=== PATIENT | male | born 1970 | race Hispanic/Latino ===

== ENCOUNTER 2019-12-02 11:56 | Observation (INO) | payer BC ==
--- NOTE | 2019-12-02 12:13 | Event Note ---
ED Screening Note Date of service: 12/02/19 Time: 12:09 ED Screening Note: This initial assessment/diagnostic orders/clinical plan/treatment(s) is/are subject to change based on patients health status, clinical progression and re- assessment by fellow clinical providers in the ED. Further treatment and workup at subsequent clinical providers discretion. Patient/guardian urged not to elope from the ED as their condition may be serious if not clinically assessed and managed. Initial orders include: 49o M states that he has CP, CHRISTENSEN, tingling in both arms and feet x 3-4 hrs. Pt states he has had an episode similar 2yrs ago. Pt states he to supposed to be Lisiniprol 40 mg and HCTZ -25mg. Hx of HTN and Asthma.
--- NOTE | 2019-12-02 12:53 | XRay Report ---
CHEST 2 VIEWS INDICATION / CLINICAL INFORMATION: Chest pain. COMPARISON: None available. FINDINGS: SUPPORT DEVICES: None. HEART / MEDIASTINUM: No significant abnormality. LUNGS / PLEURA: No significant pulmonary or pleural abnormality. No pneumothorax. ADDITIONAL FINDINGS: No significant additional findings. IMPRESSION: 1. No acute findings. Signer Name: Kendall Ruiz MD Signed: 12/02/2019 12:49 PM Workstation Name: [id number]
[2019-12-02 13:46] LABS: Hematocrit 50.1 % (35.5-45.6); Hemoglobin 16.8 gm/dl (11.8-15.2); Mean Corpuscular HGB Conc 34 % (32-34); Mean Corpuscular Volume 96 fl (84-94); Platelet Count 280 K/mm3 (140-440); Red Cell Distribution Width 13.1 % (13.2-15.2)
[2019-12-02] MEDS ORDERED: LEVALBUTEROL 0.63 MG/3 ML NEBU IH ONE (13:56)
[2019-12-02] MEDS ORDERED: cloNIDine 0.2 MG TAB PO ONE (13:59)
--- NOTE | 2019-12-02 14:02 | Emergency Department Report ---
HPI - General Chief Complaint: Chest Pain - HPI HPI: Room 3 The patient is a 49-year-old male present with a chief complaint of chest pain. The patient states that this morning at 11: 3 0 while walking he developed tightness in the middle of his chest and tightness and paresthesia of the left upper extremity. Patient states the tightness is been constant and associated with shortness of breath and nausea without vomiting or diaphoresis. The patient states she has been of his blood pressure medication for the past 3-6 months. Patient states his last stress test occurred 5 to 6 years ago but he is never had a cardiac catheterization ED Past Medical Hx - Past Medical History Previous Medical History?: Yes Hx Hypertension: Yes Hx Asthma: Yes - Surgical History Past Surgical History?: No Additional Surgical History: Tonsillectomy - Family History Family history: no significant - Social History Smoking Status: Heavy Tobacco Smoker Substance Use Type: None (Denies illicit drug use) ED Review of Systems ROS: Stated complaint: LEFT SIDED WEAKNESS Other details as noted in HPI Constitutional: denies: diaphoresis Eyes: denies: eye pain ENT: denies: throat pain Respiratory: shortness of breath Cardiovascular: chest pain Endocrine: no symptoms reported Gastrointestinal: nausea. denies: vomiting Genitourinary: denies: dysuria Musculoskeletal: denies: back pain Neurological: denies: headache Physical Exam - Physical Exam Vital Signs: Vital Signs 12/02/19 12:02 Temperature 98.3 F Pulse Rate 133 H Respiratory 20 Rate Blood Pressure 180/120 [Right] O2 Sat by Pulse 94 Oximetry Physical Exam: GENERAL: The patient is well-developed well-nourished male sitting on stretcher not appearing to be in acute distress. [] HEENT: Normocephalic. Atraumatic. Extraocular motions are intact. Patient has moist mucous membranes. NECK: Supple. Trachea midline CHEST/LUNGS: Clear to auscultation. There is no respiratory distress noted. HEART/CARDIOVASCULAR: Regular. There is no tachycardia. There is no gallop rub or murmur. ABDOMEN: Abdomen is soft, nontender. Patient has normal bowel sounds. There is no abdominal distention. SKIN: There is no rash. There is no edema. There is no diaphoresis. NEURO: The patient is awake, alert, and oriented. The patient is cooperative. The patient has normal speech MUSCULOSKELETAL: There is no evidence of acute injury. ED Course Vital Signs 12/02/19 12:02 Temperature 98.3 F Pulse Rate 133 H Respiratory 20 Rate Blood Pressure 180/120 [Right] O2 Sat by Pulse 94 Oximetry ED Medical Decision Making - Lab Data Result diagrams: 12/02/19 12:44 12/02/19 12:44 Laboratory Tests 12/02/19 12/02/19 12/02/19 12:12 12:44 12:44 WBC 14.3 H RBC 5.20 H Hgb 16.8 H Hct 50.1 H MCV 96 H MCH 32 MCHC 34 RDW 13.1 L Plt Count 280 D-Dimer Sodium 135 L Potassium 3.9 Chloride 94.9 L Carbon Dioxide 22 Anion Gap 22 BUN 9 Creatinine 0.7 L Estimated GFR > 60 BUN/Creatinine Ratio 13 Glucose 90 POC Glucose 86 Calcium 9.7 Total Bilirubin 0.60 AST 17 ALT 16 Alkaline Phosphatase 89 Troponin T < 0.010 NT-Pro-B Natriuret Pep Total Protein 7.7 Albumin 4.4 Albumin/Globulin Ratio 1.3 12/02/19 12/02/19 14:07 14:07 WBC RBC Hgb Hct MCV MCH MCHC RDW Plt Count D-Dimer 155.17 Sodium Potassium Chloride Carbon Dioxide Anion Gap BUN Creatinine Estimated GFR BUN/Creatinine Ratio Glucose POC Glucose Calcium Total Bilirubin AST ALT Alkaline Phosphatase Troponin T NT-Pro-B Natriuret Pep 57.77 Total Protein Albumin Albumin/Globulin Ratio - EKG Data -: EKG Interpreted by Me EKG shows normal: sinus rhythm Rate: tachycardia (133) - EKG Data When compared to previous EKG there are: previous EKG unavailable Interpretation: other (No ischemic changes seen) - Radiology Data Radiology results: report reviewed (Chest x-ray), image reviewed (Chest x-ray) interpreted by me: Chest x-ray-no focal infiltrates, no pneumothorax Findings [facility] [address] [place] [address] XRay Report Signed Patient: GONZALES ARMENDARIZ MR#: [id number] : 1970 Acct:[id number] Age/Sex: 49 / M ADM Date: 12/02/19 Loc: ED Attending Dr: Ordering Physician: GLORY MISHRA PA-C Date of Service: 12/02/19 Procedure(s): XR chest routine 2V Accession Number(s): [id number] cc: GLORY MISHRA PA-C Fluoro Time In Minutes: CHEST 2 VIEWS INDICATION / CLINICAL INFORMATION: Chest pain. COMPARISON: None available. FINDINGS: SUPPORT DEVICES: None. HEART / MEDIASTINUM: No significant abnormality. LUNGS / PLEURA: No signif icant pulmonary or pleural abnormality. No pneumothorax. ADDITIONAL FINDINGS: No significant additional findings. IMPRESSION: 1. No acute findings. Signer Name: Kendall Ruiz MD Signed: 12/02/2019 12:49 PM Workstation Name: [id number] Transcribed By: EMILY Dictated By: Kendall Ruiz MD Electronically Authenticated By: Kendall Ruiz MD Signed Date/Time: 12/02/191248 DD/ 48 TD/TT: - Differential Diagnosis ACS, PE, pericarditis, GERD Critical care attestation.: If time is entered above; I have spent that time in minutes in the direct care of this critically ill patient, excluding procedure time. ED Disposition Clinical Impression: Chest pain Disposition: DC-09 OP ADMIT IP TO THIS HOSP Is pt being admited?: Yes Does the pt Need Aspirin: Yes Condition: Fair Instructions: Chest Pain (ED) Referrals: PRIMARY CARE, [Primary Care Provider] - 3-5 Days Time of Disposition: 14:57 (Hospitalist paged (Dr Galvez))
[2019-12-02 14:17] LABS: Alanine Aminotransferase 16 units/L (7-56); Albumin 4.4 g/dL (3.9-5); BUN/Creatinine Ratio 13; Blood Urea Nitrogen 9 mg/dL (9-20); Calcium 9.7 mg/dL (8.4-10.2); Hemolysis Index 15
[2019-12-02] MEDS ORDERED: ASPIRIN 325 MG TAB PO ONE (14:58)
[2019-12-02 15:10] LABS: Amphetamine Screen,Urine PRESUMPTIVE NEGATIVE; Benzodiazepines Screen,Urine PRESUMPTIVE NEGATIVE; Cannabinoid Screen,Urine PRESUMPTIVE NEGATIVE; Cocaine Screen,Urine PRESUMPTIVE NEGATIVE; Methadone Screen,Urine PRESUMPTIVE NEGATIVE; Opiate Screen,Urine PRESUMPTIVE NEGATIVE
--- NOTE | 2019-12-02 19:46 | History and Physical Report ---
History of Present Illness Date of examination: 12/02/19 Date of admission: 12/02/19 14:59 Chief complaint: Chest pain since 11:30 AM today History of present illness: 49-year-old male with history of hypertension not taking his medication and severe nicotine dependence-smoking about 1 to 2 packs a day comes in for left-sided chest pain since 11:30 AM. Chest pain is intermittent about 6 on a scale of 1-10. Dull to sharp. Chest pain radiating to the left arm. Chest tightness is constant. No diaphoresis or palpitations. Patient also not taking his blood pressure medications. Patient had a stress test about 5 to 6 years ago. Never had a cardiac cath. No fitter helper. Patient does not want any NicoDerm patch for his nicotine dependence. Nausea shortness of breath. No recent travel. No exacerbating or relieving factors. Past Medical History Previous Medical History?: Yes Hypertension: Yes Asthma: Yes Surgical History Past Surgical History?: No Additional Surgical History: Tonsillectomy Family History Family history: no significant Social History Smoking Status: Heavy Tobacco Smoker--1 to 2 packs a day. Substance Use Type: None (Denies illicit drug use) Review of Systems ROS: Constitutional: no fever, no chills, no weight loss Ears, eyes, nose, mouth and throat: no nasal congestion, no nasal discharge, no sinus pressure, no vision change, no red eye. Neck: No neck pain or rigidity. Cardiovascular:Chest pain since 11:30 AM. Severe chest tightness. Radiating to the left arm. No orthopnea, no palpitations, no leg swelling Respiratory: No shortness of breath, no cough, no congestion, no wheezing Gastrointestinal: no abdominal pain, no nausea, no vomiting Genitourinary : no dysuria, no hematuria Musculoskeletal: no joint swelling or muscle ache Integumentary: no rash, no pruritis Neurological: no parathesias, no numbness, no tingling Endocrine: no cold or heat intolerance, no polyuria or polydipsia Hematologic/Lymphatic: no easy bruising, no easy bleeding, no gland swelling Allergic/Immunologic: no urticaria, no angioedema. Medications and Allergies Allergies Allergy/AdvReac Type Severity Reaction Status Date / Time No Known Allergies Allergy Unverified 12/02/19 12:01 Exam - Constitutional Vitals: Temp Pulse Resp BP Pulse Ox 98.3 F 91 H 15 140/90 94 12/02/19 12:02 12/02/19 17:00 12/02/19 17:00 12/02/19 17:00 12/02/19 17:00 General appearance: Present: no acute distress, well-nourished - EENT Eyes: Present: PERRL ENT: hearing intact, clear oral mucosa - Neck Neck: Present: supple, normal ROM - Respiratory Respiratory effort: normal Respiratory: bilateral: CTA - Cardiovascular Heart rate: 123 Rhythm: regular Heart Sounds: Present: S1 & S2. Absent: rub, click - Extremities Extremities: no ischemia, pulses intact, pulses symmetrical, No edema Peripheral Pulses: within normal limits - Abdominal General gastrointestinal: Present: soft, non-tender, non-distended, normal bowel sounds Male genitourinary: Present: normal - Rectal Rectal Exam: deferred - Integumentary Integumentary: Present: clear, warm, dry - Musculoskeletal Musculoskeletal: gait normal, strength equal bilaterally - Psychiatric Psychiatric: appropriate mood/affect, intact judgment & insight - Neurologic Neurologic: CNII-XII intact, moves all extremities - Allied Health Allied health notes reviewed: nursing, case management Results - Labs CBC & Chem 7: 12/02/19 12:44 12/02/19 12:44 Labs: Laboratory Last Values WBC 14.3 K/mm3 (4.5-11.0) H 12/02/19 12:44 RBC 5.20 M/mm3 (3.65-5.03) H 12/02/19 12:44 Hgb 16.8 gm/dl (11.8-15.2) H 12/02/19 12:44 Hct 50.1 % (35.5-45.6) H 12/02/19 12:44 MCV 96 fl (84-94) H 12/02/19 12:44 MCH 32 pg (28-32) 12/02/19 12:44 MCHC 34 % (32-34) 12/02/19 12:44 RDW 13.1 % (13.2-15.2) L 12/02/19 12:44 Plt Count 280 K/mm3 (140-440) 12/02/19 12:44 D-Dimer 155.17 ng/mlDDU (0-234) 12/02/19 14:07 Sodium 135 mmol/L (137-145) L 12/02/19 12:44 Potassium 3.9 mmol/L (3.6-5.0) 12/02/19 12:44 Chloride 94.9 mmol/L (98-107) L 12/02/19 12:44 Carbon Dioxide 22 mmol/L (22-30) 12/02/19 12:44 Anion Gap 22 mmol/L 12/02/19 12:44 BUN 9 mg/dL (9-20) 12/02/19 12:44 Creatinine 0.7 mg/dL (0.8-1.5) L 12/02/19 12:44 Estimated GFR > 60 ml/min 12/02/19 12:44 BUN/Creatinine Ratio 13 % 12/02/19 12:44 Glucose 90 mg/dL (75-100) 12/02/19 12:44 POC Glucose 86 (70-105) 12/02/19 12:12 Calcium 9.7 mg/dL (8.4-10.2) 12/02/19 12:44 Total Bilirubin 0.60 mg/dL (0.1-1.2) 12/02/19 12:44 AST 17 units/L (5-40) 12/02/19 12:44 ALT 16 units/L (7-56) 12/02/19 12:44 Alkaline Phosphatase 89 units/L (35-129) 12/02/19 12:44 Troponin T < 0.010 ng/mL (0.00-0.029) 12/02/19 12:44 NT-Pro-B Natriuret Pep 57.77 pg/mL (0-450) 12/02/19 14:07 Total Protein 7.7 g/dL (6.3-8.2) 12/02/19 12:44 Albumin 4.4 g/dL (3.9-5) 12/02/19 12:44 Albumin/Globulin Ratio 1.3 % 12/02/19 12:44 Urine Opiates Screen Presumptive negative 12/02/19 Unknown Urine Methadone Screen Presumptive negative 12/02/19 Unknown Ur Barbiturates Screen Presumptive negative 12/02/19 Unknown Ur Phencyclidine Scrn Presumptive negative 12/02/19 Unknown Ur Amphetamines Screen Presumptive negative 12/02/19 Unknown U Benzodiazepines Scrn Presumptive negative 12/02/19 Unknown Urine Cocaine Screen Presumptive negative 12/02/19 Unknown U Marijuana (THC) Screen Presumptive negative 12/02/19 Unknown Drugs of Abuse Note Disclamer 12/02/19 Unknown Short CBC 12/02/19 Range/Units 12:44 WBC 14.3 H (4.5-11.0) K/mm3 Hgb 16.8 H (11.8-15.2) gm/dl Hct 50.1 H (35.5-45.6) % Plt Count 280 (140-440) K/mm3 BMP 12/02/19 12:44 Sodium 135 L Potassium 3.9 Chloride 94.9 L Carbon Dioxide 22 BUN 9 Creatinine 0.7 L Glucose 90 Calcium 9.7 Cardiac Enzymes 12/02/19 Range/Units 12:44 Troponin T < 0.010 (0.00-0.029) ng/mL Liver Function 12/02/19 Range/Units 12:44 Total Bilirubin 0.60 (0.1-1.2) mg/dL AST 17 (5-40) units/L ALT 16 (7-56) units/L Alkaline Phosphatase 89 (35-129) units/L Albumin 4.4 (3.9-5) g/dL - Imaging and Cardiology EKG: report reviewed (Sinus tachycardia, heart rate of 123/min, probable left atrial enlargement) Chest x-ray: report reviewed (No acute findings) Assessment and Plan Advance Directives: Yes (Full code) VTE prophylaxis?: Chemical Plan of care discussed with patient/family: Yes - Patient Problems (1) Chest pain Current Visit: Yes Status: Acute Qualifiers: Chest pain type: unspecified Qualified Code(s): R07.9 - Chest pain, unspecified Plan to address problem: Chest pain-rule out SD Differential diagnosis of costochondritis and GERD Serial troponins Exercise stress test in the morning (2) Hypertension Current Visit: Yes Status: Chronic Qualifiers: Hypertension type: essential hypertension Qualified Code(s): I10 - Essential (primary) hypertension Plan to address problem: Patient initiated on losartan 50 mg once a day (3) Nicotine dependence Current Visit: Yes Status: Chronic Qualifiers: Nicotine product type: cigarettes Plan to address problem: Smokes about 1 pack to 2 packs a day Patient was counseled about stopping smoking Reluctant to stop smoking Does not want the NicoDerm patch (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
[2019-12-02] MEDS ORDERED: oxyCODONE /ACETAMINOPHEN 5-325MG TAB PO PRN (19:54)
[2019-12-02] MEDS ORDERED: ONDANSETRON 4 MG/2 ML INJ IV PRN (19:54)
[2019-12-02] MEDS ORDERED: METOCLOPRAMIDE 10 MG/2 ML INJ IV PRN (19:54)
[2019-12-02] MEDS ORDERED: HYDROmorphone 1 MG/1 ML INJ IV PRN (19:54)
[2019-12-02] MEDS ORDERED: ACETAMINOPHEN 325 MG TAB PO PRN (19:54)
[2019-12-02] MEDS ORDERED: SODIUM CHLORIDE 0.9% 1000 ML 1,000 ML IV SCH (20:00)
[2019-12-02] MEDS ORDERED: ALBUTEROL 2.5 MG/3 ML NEBU IH PRN (20:01)
[2019-12-02] MEDS: ASPIRIN EC 81 MG TAB PO SCH (20:45)
[2019-12-02] MEDS: LOSARTAN 50 MG TAB PO SCH (20:45)
[2019-12-02] MEDS: HEPARIN 5,000 UNIT/1 ML VIAL SUB-Q SCH (21:41)
[2019-12-02] MEDS: FAMOTIDINE 20 MG/2 ML INJ IV SCH (21:42)
[2019-12-03 03:43] LABS: Basophils # (Auto) 0.1 K/mm3 (0.0-0.1); Basophils % (Auto) 0.7 % (0.0-1.8); Eosinophils # (Auto) 0.3 K/mm3 (0.0-0.4); Eosinophils % (Auto) 2.7 % (0.0-4.3); Hematocrit 46.6 % (35.5-45.6); Hemoglobin 15.7 gm/dl (11.8-15.2); Lymphocytes # (Auto) 3.3 K/mm3 (1.2-5.4); Lymphocytes % (Auto) 27.5 % (13.4-35.0); Mean Corpuscular HGB Conc 34 % (32-34); Mean Corpuscular Volume 96 fl (84-94); Monocytes # (Auto) 1.1 K/mm3 (0.0-0.8); Monocytes % (Auto) 9.1 % (0.0-7.3); Platelet Count 234 K/mm3 (140-440); Red Blood Count 4.84 M/mm3 (3.65-5.03); Red Cell Distribution Width 13.1 % (13.2-15.2)
[2019-12-03 04:05] LABS: Alanine Aminotransferase 12 units/L (7-56); Albumin 3.9 g/dL (3.9-5); BUN/Creatinine Ratio 14; Blood Urea Nitrogen 10 mg/dL (9-20); Calcium 9.3 mg/dL (8.4-10.2); Hemolysis Index 15
--- NOTE | 2019-12-03 11:10 | Progress Note ---
Hospitalist Physical - Constitutional Vitals: Temp Pulse Resp BP Pulse Ox 98.6 F 59 L 18 109/71 96 12/03/19 03:12 12/03/19 07:02 12/03/19 07:02 12/03/19 03:12 12/03/19 07:02 General appearance: Present: no acute distress, well-nourished Results - Labs CBC & Chem 7: 12/03/19 03:26 12/03/19 03:26 Labs: Laboratory Last Values WBC 11.9 K/mm3 (4.5-11.0) H 12/03/19 03:26 RBC 4.84 M/mm3 (3.65-5.03) 12/03/19 03:26 Hgb 15.7 gm/dl (11.8-15.2) H 12/03/19 03:26 Hct 46.6 % (35.5-45.6) H 12/03/19 03:26 MCV 96 fl (84-94) H 12/03/19 03:26 MCH 32 pg (28-32) 12/03/19 03:26 MCHC 34 % (32-34) 12/03/19 03:26 RDW 13.1 % (13.2-15.2) L 12/03/19 03:26 Plt Count 234 K/mm3 (140-440) 12/03/19 03:26 Lymph % (Auto) 27.5 % (13.4-35.0) 12/03/19 03:26 [place] % (Auto) 9.1 % (0.0-7.3) H 12/03/19 03:26 Eos % (Auto) 2.7 % (0.0-4.3) 12/03/19 03:26 Baso % (Auto) 0.7 % (0.0-1.8) 12/03/19 03:26 Lymph # 3.3 K/mm3 (1.2-5.4) 12/03/19 03:26 [place] # 1.1 K/mm3 (0.0-0.8) H 12/03/19 03:26 Eos # 0.3 K/mm3 (0.0-0.4) 12/03/19 03:26 Baso # 0.1 K/mm3 (0.0-0.1) 12/03/19 03:26 Seg Neutrophils % 60.0 % (40.0-70.0) 12/03/19 03:26 Seg Neutrophils # 7.1 K/mm3 (1.8-7.7) 12/03/19 03:26 D-Dimer 155.17 ng/mlDDU (0-234) 12/02/19 14:07 Sodium 137 mmol/L (137-145) 12/03/19 03:26 Potassium 4.3 mmol/L (3.6-5.0) 12/03/19 03:26 Chloride 99.2 mmol/L (98-107) 12/03/19 03:26 Carbon Dioxide 25 mmol/L (22-30) 12/03/19 03:26 Anion Gap 17 mmol/L 12/03/19 03:26 BUN 10 mg/dL (9-20) 12/03/19 03:26 Creatinine 0.7 mg/dL (0.8-1.5) L 12/03/19 03:26 Estimated GFR > 60 ml/min 12/03/19 03:26 BUN/Creatinine Ratio 14 % 12/03/19 03:26 Glucose 92 mg/dL (75-100) 12/03/19 03:26 POC Glucose 86 (70-105) 12/02/19 12:12 Calcium 9.3 mg/dL (8.4-10.2) 12/03/19 03:26 Total Bilirubin 1.20 mg/dL (0.1-1.2) 12/03/19 03:26 AST 14 units/L (5-40) 12/03/19 03:26 ALT 12 units/L (7-56) 12/03/19 03:26 Alkaline Phosphatase 82 units/L (35-129) 12/03/19 03:26 Troponin T < 0.010 ng/mL (0.00-0.029) 12/03/19 01:48 NT-Pro-B Natriuret Pep 57.77 pg/mL (0-450) 12/02/19 14:07 Total Protein 6.3 g/dL (6.3-8.2) 12/03/19 03:26 Albumin 3.9 g/dL (3.9-5) 12/03/19 03:26 Albumin/Globulin Ratio 1.6 % 12/03/19 03:26 Urine Opiates Screen Presumptive negative 12/02/19 Unknown Urine Methadone Screen Presumptive negative 12/02/19 Unknown Ur Barbiturates Screen Presumptive negative 12/02/19 Unknown Ur Phencyclidine Scrn Presumptive negative 12/02/19 Unknown Ur Amphetamines Screen Presumptive negative 12/02/19 Unknown U Benzodiazepines Scrn Presumptive negative 12/02/19 Unknown Urine Cocaine Screen Presumptive negative 12/02/19 Unknown U Marijuana (THC) Screen Presumptive negative 12/02/19 Unknown Drugs of Abuse Note Disclamer 12/02/19 Unknown Ravi/IV: IV Catheter Type [Left Wrist] INT / Saline Lock Active Medications - Current Medications Current Medications: Generic Name Dose Route Start Last Admin Trade Name Freq PRN Reason Stop Dose Admin Acetaminophen 650 mg 12/02/19 19:54 Tylenol PO Q4H PRN Pain MILD(1-3)/Fever >100.5/CHRISTENSEN Albuterol 2.5 mg 12/02/19 20:01 Proventil IH Q4HRT PRN Shortness Of Breath Aspirin 81 mg 12/02/19 20:00 12/02/19 20:45 Halfprin Ec PO 81 mg QDAY MARINA Administration Famotidine 20 mg 12/02/19 22:00 12/02/19 21:42 Pepcid IV 20 mg BID MARINA Administration Heparin Sodium (Porcine) 5,000 unit 12/02/19 22:00 12/02/19 21:41 Heparin SUB-Q 5,000 unit Q12HR MARINA Administration Hydromorphone HCl 0.5 mg 12/02/19 19:54 Dilaudid IV Q3H PRN Pain , Severe (7-10) Sodium Chloride 1,000 mls @ 75 mls/hr 12/02/19 20:00 Nacl 0.9% 1000 Ml IV DIRECT MARINA Losartan Potassium 50 mg 12/02/19 20:00 12/02/19 20:45 Cozaar PO 50 mg QDAY AMRINA Administration Metoclopramide HCl 10 mg 12/02/19 19:54 Reglan IV Q6H PRN Nausea And Vomiting Ondansetron HCl 4 mg 12/02/19 19:54 Zofran IV Q8H PRN Nausea And Vomiting Oxycodone/Acetaminophen 1 tab 12/02/19 19:54 12/02/19 21:41 Percocet 5/325 PO 1 tab Q6H PRN Administration Pain, Moderate (4-6) Sodium Chloride 10 ml 12/02/19 22:00 12/02/19 21:47 Sodium Chloride Flush Syringe 10 Ml IV 10 ml BID MARINA Administration Sodium Chloride 10 ml 12/02/19 19:54 Sodium Chloride Flush Syringe 10 Ml IV PRN PRN LINE FLUSH
[2019-12-03 12:31] VITALS: BP 131/88
[2019-12-03] MEDS: FAMOTIDINE 20 MG/2 ML INJ IV SCH (13:00)
[2019-12-03] MEDS: ASPIRIN EC 81 MG TAB PO SCH (15:10)
[2019-12-03] MEDS: LOSARTAN 50 MG TAB PO SCH (15:10)
[2019-12-03] MEDS: HEPARIN 5,000 UNIT/1 ML VIAL SUB-Q SCH (15:14)
--- NOTE | 2019-12-03 15:18 | Discharge Summary ---
Providers - Providers Date of Admission: 12/02/19 14:59 Date of discharge: 12/03/19 Attending physician: ZENAIDA TOWNSEND Primary care physician: PUBLIC [facility] ATTENDANT Hospitalization Reason for admission: Chest pain Condition: Fair Procedures: Stress test: negative Hospital course: 49-year-old male with history of hypertension not taking his medication and severe nicotine dependence-smoking about 1 to 2 packs a day comes in for left-sided chest pain since 11:30 AM. Chest pain is intermittent about 6 on a scale of 1-10. Dull to sharp. Chest pain radiating to the left arm. Admitted and managed appropriately,Stress test negative.Non cardiac chest pain due to GERD ,managed with protonix. Smoking cessation advised .Stable at discharge. Discharge Diagnosis: --Chest pain,Atypical/ Non cardiac chest pain. Current Visit: Yes Status: Acute Chest pain-resolved, Stress test negatve --GERD/cause of chest pain Current Visit: Yes Status: Acute . Protonix -- Hypertension Current Visit: Yes Status: Chronic Patient initiated on losartan 50 mg once a day --Nicotine dependence Current Visit: Yes Status: Chronic Smoking cessation NicoDerm patch as needed -- Polycythemia secondary to smoking Current Visit: Yes Status: Chronic Secondary to smoking, hypoxia Patient needs to stop smoking -- DVT prophylaxis Current Visit: Yes Status: Acute On heparin Stable at discharge. Disposition: DC-01 TO HOME OR SELFCARE Time spent for discharge: 32 min Core Measure Documentation - Palliative Care Palliative Care/ Comfort Measures: Not Applicable - Core Measures Any of the following diagnoses?: none Exam - Constitutional Vitals: Temp Pulse Resp BP Pulse Ox 98.3 F 74 18 131/88 93 12/03/19 12:30 12/03/19 12:30 12/03/19 12:30 12/03/19 12:30 12/03/19 12:30 General appearance: Present: no acute distress, well-nourished - EENT Eyes: Present: PERRL, EOM intact - Neck Neck: Present: supple, normal ROM - Respiratory Respiratory effort: normal Respiratory: bilateral: diminished, negative: rales, rhonchi, wheezing - Cardiovascular Rhythm: regular Heart Sounds: Present: S1 & S2 - Extremities Extremities: no ischemia, No edema - Abdominal General gastrointestinal: Present: soft, non-tender, non-distended, normal bowel sounds - Integumentary Integumentary: Present: clear, warm - Musculoskeletal Musculoskeletal: strength equal bilaterally - Psychiatric Psychiatric: appropriate mood/affect, cooperative - Neurologic Neurologic: moves all extremities Plan Activity: no restrictions Diet: regular Special Instructions: smoking cessation Additional Instructions: Your stress test is normal. chest pain probably noncardiac , probably due to gastroesophageal reflux disease, or musculoskeletal pain. Advised to see private svp operations should you have recurrent chest pain. Or go to emergency room. Advised smoking cessation, use nicotine patch as needed Follow up with: PRIMARY CARE, [Primary Care Provider] - 3-5 Days ДМИТРИЙ SQUIRES MD [Staff Physician] - 14 Days Prescriptions: Losartan [Cozaar] 50 mg PO QDAY #30 tablet Famotidine [Pepcid] 20 mg PO BID #20 tablet
== END 2019-12-03 16:37 | disposition home or self-care (01) ==
LOC: ED 11:56 → 4A 14:59
PROVIDERS: ADMIT Internal Medicine; ATTEND Internal Medicine
DX: R07.89 Other chest pain (principal); I10 Essential (primary) hypertension; D75.1 Secondary polycythemia; J45.909 Unspecified asthma, uncomplicated; F17.200 Nicotine dependence, unspecified, uncomplicated; Z79.899 Other long term (current) drug therapy
CPT/HCPCS: 36415; 71046; 80053; 80307; 82962; 83880; 84484; 85025; 85027; 85379; 93005; 93010; 93017; 96372; 96374; 99285; G0378; J1644

== ENCOUNTER 2022-03-28 15:06 | Emergency (ER) | payer BC ==
[2022-03-28] MEDS ORDERED: SODIUM CHLORIDE 0.9% 1000 ML 1,000 ML IV ONE (17:11)
[2022-03-28] MEDS ORDERED: ONDANSETRON 4 MG/2 ML INJ IV ONE (17:11)
--- NOTE | 2022-03-28 17:12 | Emergency Department Report ---
Stated Complaint: CHILLS/SOB/DIZZY - HPI History of Present Illness: 51-year-old male history of hypertension presents to the emergency department with chest pain lightheadedness dizziness. Patient reports this morning woke up with 3 episodes of vomiting prior to arrival. Nontoxic-appearing and shows answers questions appropriately. No acute In the setting of a significantly high volume and record number of patients presenting to the emergency department and the fact that we have a limited space to see patients we have implemented the provider in triage protocol this allows an expedited initial exam of patients that might otherwise have left without being seen or who would wait longer than usual to be seen by provider. I interviewed the patient and performed a limited physical exam. This patient is a pulled from the waiting room to triage room for an initial assessment of adrenal studies and then returned to the waiting room pending results of the studies. The ultimate final evaluation and disposition may be performed by another provider depending on room and provider availability. MSE screening note: Focused history and physical exam performed. Due to findings the following was ordered: ED Disposition for MSE Condition: Stable
[2022-03-28 18:06] LABS: Basophils # (Auto) 0.1 K/mm3 (0.0-0.1); Basophils % (Auto) 0.9 % (0.0-1.8); Eosinophils # (Auto) 0.1 K/mm3 (0.0-0.4); Eosinophils % (Auto) 0.8 % (0.0-4.3); Hematocrit 46.9 % (35.5-45.6); Hemoglobin 16.3 gm/dl (11.8-15.2); Lymphocytes # (Auto) 3.4 K/mm3 (1.2-5.4); Lymphocytes % (Auto) 23.1 % (13.4-35.0); Mean Corpuscular HGB Conc 35 % (32-34); Mean Corpuscular Volume 95 fl (84-94); Monocytes # (Auto) 1.7 K/mm3 (0.0-0.8); Monocytes % (Auto) 11.9 % (0.0-7.3); Platelet Count 245 K/mm3 (140-440); Red Blood Count 4.94 M/mm3 (3.65-5.03); Red Cell Distribution Width 13.2 % (13.2-15.2)
[2022-03-28 18:24] LABS: Alanine Aminotransferase 21 units/L (7-56); Albumin 4.2 g/dL (3.9-5); BUN/Creatinine Ratio 12; Blood Urea Nitrogen 13 mg/dL (9-20); Calcium 10.1 mg/dL (8.4-10.2); Hemolysis Index 18
--- NOTE | 2022-03-29 00:24 | Cat Scan Report ---
CT ABDOMEN AND PELVIS WITH CONTRAST INDICATION / CLINICAL INFORMATION: Lower ABD Pain. TECHNIQUE: Axial CT images were obtained through the abdomen and pelvis after IV contrast. All CT sc ans at this location are performed using CT dose reduction for ALARA by means of automated exposure c ontrol. COMPARISON: None available. FINDINGS: LOWER CHEST: No significant abnormality of the imaged chest. LIVER: Diffuse low attenuation compatible with hepatic steatosis. GALLBLADDER / BILE DUCTS: No significant abnormality. Biliary ducts grossly unremarkable. SPLEEN: No significant abnormality. PANCREAS: No significant abnormality. ADRENALS: No significant abnormality. KIDNEYS/URETERS: Bilateral renal cysts. No acute findings involving the kidneys. STOMACH / DUODENUM / SMALL BOWEL: The stomach, duodenum, and small bowel demonstrate no significant a bnormality. No specific abnormality of the mesentery demonstrated. COLON: Diverticulosis without obvious acute inflammation. APPENDIX: No significant abnormality. PERITONEUM: No free air or free fluid are present within the abdomen or pelvis. LYMPH NODES: No significant adenopathy. AORTA / ARTERIES: Moderate atherosclerotic calcification without acute abnormality. Fusiform enlargem ent of the right common iliac artery measuring 2 cm. IVC / VEINS: No significant abnormality. URINARY BLADDER: Mild diffuse bladder wall thickening nonspecific in appearance may reflect trabecula tion. REPRODUCTIVE ORGANS: Borderline to mild prostatomegaly. SKELETAL SYSTEM: No significant abnormality. ADDITIONAL ABDOMINAL/PELVIC FINDINGS: None. IMPRESSION: 1. Colonic diverticulosis without obvious diverticulitis. Other nonacute findings as detailed. Signer Name: Kraig Cedillo II, MD Signed: 03/29/2022 12:19 AM Workstation Name: [id number]
--- NOTE | 2022-03-29 00:39 | Emergency Department Report ---
ED Abdominal Pain HPI - General Chief Complaint: Abdominal Pain Stated Complaint: CHILLS/SOB/DIZZY Time Seen by Provider: 03/28/22 21:16 Source: patient Mode of arrival: Ambulatory Limitations: No Limitations - History of Present Illness Initial Comments: 51-year-old male presents emerged department complaining of 1-1/2-day history of chills associated with nausea vomiting episode associate with Abdominal cramping. While at work he had an episode of shortness of breath of vomiting that has been department to be checked out reports no rashes, or diarrhea, no foreign travel but may have had a sick contact. No hemoptysis no vomiting hematochezia. MD Complaint: abdominal pain -: Gradual Radiation: none Migration to: no migration Severity: mild Severity scale (0 -10): 8 Consistency: constant Improves With: nothing Worsens With: nothing - Related Data Previous Rx's Medication Instructions Recorded Last Taken Type Famotidine [Pepcid] 20 mg PO BID #20 tablet 12/03/19 Unknown Rx Losartan [Cozaar] 50 mg PO QDAY #30 tablet 12/03/19 Unknown Rx Hyoscyamine Subl [Levsin Sl] 0.125 mg SL Q4HR PRN #16 tablet 03/29/22 Unknown Rx Ondansetron [Zofran ODT TAB] 8 mg PO Q12HR #14 tab.rapdis 03/29/22 Unknown Rx Allergies Allergy/AdvReac Type Severity Reaction Status Date / Time No Known Allergies Allergy Unverified 12/02/19 12:01 ED Review of Systems ROS: Stated complaint: CHILLS/SOB/DIZZY Other details as noted in HPI Comment: All other systems reviewed and negative ED Past Medical Hx - Past Medical History Hx Hypertension: Yes Hx Congestive Heart Failure: No Hx Asthma: Yes - Surgical History Additional Surgical History: Tonsillectomy - Social History Smoking Status: Current Every Day Smoker - Medications Home Medications: Home Medications Medication Instructions Recorded Confirmed Last Taken Type Famotidine [Pepcid] 20 mg PO BID #20 tablet 12/03/19 Unknown Rx Losartan [Cozaar] 50 mg PO QDAY #30 tablet 12/03/19 Unknown Rx Hyoscyamine Subl [Levsin Sl] 0.125 mg SL Q4HR PRN #16 tablet 03/29/22 Unknown Rx Ondansetron [Zofran ODT TAB] 8 mg PO Q12HR #14 tab.rapdis 03/29/22 Unknown Rx ED Physical Exam - General Limitations: No Limitations General appearance: alert, in no apparent distress - Head Head exam: Present: atraumatic, normocephalic - Eye Eye exam: Present: normal appearance - ENT ENT exam: Present: normal exam, mucous membranes moist - Neck Neck exam: Present: normal inspection, full ROM - Respiratory Respiratory exam: Present: normal lung sounds bilaterally, chest wall tenderness. Absent: respiratory distress, wheezes, rales, accessory muscle use - Cardiovascular Cardiovascular Exam: Present: regular rate, normal rhythm. Absent: systolic murmur, diastolic murmur, rubs, gallop - GI/Abdominal GI/Abdominal exam: Present: soft, normal bowel sounds - Rectal Rectal exam: Present: deferred - Extremities Exam Extremities exam: Present: normal inspection - Back Exam Back exam: Present: normal inspection - Neurological Exam Neurological exam: Present: alert, oriented X3 - Psychiatric Psychiatric exam: Present: normal affect, normal mood - Skin Skin exam: Present: warm, dry, intact, normal color. Absent: rash ED Course Vital Signs 03/28/22 03/29/22 17:03 02:46 Temperature 98.9 F Pulse Rate 111 H 104 H Respiratory 14 16 Rate Blood Pressure 113/59 104/70 [Right] O2 Sat by Pulse 98 95 Oximetry ED Medical Decision Making - Lab Data Result diagrams: 03/28/22 17:40 03/28/22 17:40 - Radiology Data Radiology results: [place] [id number] Cat Scan Report Signed Patient: GONZALES ARMENDARIZ MR#: [id number] : 1970 Acct:[id number] Age/Sex: 51 / M ADM Date: 03/28/22 Loc: ED Attending Dr: Ordering Physician: LINDA CAMP Date of Service: 03/28/22 Procedure(s): CT abdomen pelvis w con Accession Number(s): [id number] cc: LINDA CAMP CT ABDOMEN AND PELVIS WITH CONTRAST INDICATION / CLINICAL INFORMATION: Lower ABD Pain. TECHNIQUE: Axial CT images were obtained through the abdomen and pelvis after IV contrast. All CT scans at this location are performed using CT dose reduction for ALARA by means of automated exposure control. COMPARISON: None available. FINDINGS: LOWER CHEST: No significant abnormality of the imaged chest. LIVER: Diffuse low attenuation compatible with hepatic steatosis. GALLBLADDER / BILE DUCTS: No significant abnormality. Biliary ducts grossly unremarkable. SPLEEN: No significant abnormality. PANCREAS: No significant abnormality. ADRENALS: No significant abnormality. KIDNEYS/URETERS: Bilateral renal cysts. No acute findings involving the kidneys. STOMACH / DUODENUM / SMALL BOWEL: The stomach, duodenum, and small bowel demonstrate no significant abnormality. No specific abnormality of the mesentery demonstrated. COLON: Diverticulosis without obvious acute inflammation. APPENDIX: No significant abnormality. PERITONEUM: No free air or free fluid are present within the abdomen or pelvis. LYMPH NODES: No significant adenopathy. AORTA / ARTERIES: Moderate atherosclerotic calcification without acute abnormality. Fusiform enlargement of the right common iliac artery measuring 2 cm. IVC / VEINS: No significant abnormality. URINARY BLADDER: Mild diffuse bladder wall thickening nonspecific in appearance may reflect trabeculation. REPRODUCTIVE ORGANS: Borderline to mild prostatomegaly. SKELETAL SYSTEM: No significant abnormality. ADDITIONAL ABDOMINAL/PELVIC FINDINGS: None. IMPRESSION: 1. Colonic diverticulosis without obvious diverticulitis. Other nonacute findings as detailed. Signer Name: Ginette Garcia II, MD Signed: 03/29/2022 12:19 AM Workstation Name: [id number] Transcribed By: SO Dictated By: GINETTE GARCIA II, MD Electronically Authenticated By: GINETTE GARCIA II, MD Signed Date/Time: 03/29/2218 DD/ TD/TT: Print - Medical Decision Making This patient presents with abdominal pain of unclear etiology. A CT scan was performed to evaluate for potential causes of the abdominal pain, however, neither the clinical exam nor the CT has identified an emergent etiology for the abdominal pain. Specifically, given the benign exam, the laboratory studies, and unremarkable CT, I have a very low suspicion for appendicitis, ischemic bowel, bowel perforation, or any other life threatening disease. I discussed with the patient that this presentation today for abdominal pain could represent a significant risk for an acute abdominal process. Although the tests in the ED were essentially normal, there is still a possibility of a process such as appendicitis, diverticulitis, cholecystitis, ulcer, early bowel obstruction, mesenteric ischemia, kidney stone, or even kidney infection which could subsequently cause disability or . I have discussed with the patient the level of uncertainty with undifferentiated abdominal pain and clearly explained the need to follow-up as noted on the discharge instructions, or return to the Emergency Department immediately if the pain worsens, develops fever, persistent and uncontrollable vomiting, or for any new symptoms or concerns.The patient understands that they must return within 24 hours for a recheck or see their physician within 24 hours for re-exam due to the possibility of significant surgical or medical process. Critical care attestation.: If time is entered above; I have spent that time in minutes in the direct care of this critically ill patient, excluding procedure time. ED Disposition Clinical Impression: Abdominal pain, Diverticulosis Disposition: HOME / SELF CARE / HOMELESS Is pt being admited?: No Does the pt Need Aspirin: No Condition: Stable Instructions: Abdominal Pain, Adult, Flank Pain, Adult, [id number], Diverticulosis Referrals: HUNG ANGULO MD [Primary Care Provider] - 3-5 Days
[2022-03-29 01:39] LABS: Bilirubin,Urine Negative (Negative); Blood,Urine Negative (Negative); Color,Urine Colorless (Yellow); Protein,Urine <15 mg/dL mg/dL (Negative)
[2022-03-29 02:47] VITALS: BP 104/70
--- NOTE | 2022-03-29 09:41 | Electrocardiograph Report ---
[facility] Test Date: 2022-03-28 Test Time: 17:10:45 Pat Name: GONZALES ARMENDARIZ Department: Room: Gender: M Reception Agent: AUGUSTINE : 1970 Requested By: ERIK RICHARDS Order Number: [id number] Reading MD: Wolfgang Mandel Measurements Intervals Iraan Rate: 111 P: -22 NC: 116 QRS: 29 QRSD: 87 T: 64 QT: 391 QTc: 530 Interpretive Statements Sinus tachycardia Prolonged QT interval No previous ECG available for comparison Electronically Signed On 03-29-2022 9:40:52 EDT by Wolfgang Mandel
== END 2022-03-29 04:20 | disposition home or self-care (01) ==
LOC: ED 15:06
DX: K57.90 Diverticulosis of intestine, part unspecified, without perforation or abscess without bleeding (principal); R10.9 Unspecified abdominal pain; I11.0 Hypertensive heart disease with heart failure; I50.9 Heart failure, unspecified; J45.909 Unspecified asthma, uncomplicated; Z98.890 Other specified postprocedural states; F17.290 Nicotine dependence, other tobacco product, uncomplicated
CPT/HCPCS: 36415; 74177; 80053; 81001; 84484; 85025; 93005; 99284; Q9967